=== PATIENT | male | born 1940 | race Caucasian/White ===

== ENCOUNTER 2020-08-24 11:12 | Inpatient (IN) | payer MEDICARE, BC ==
[2020-08-24] MEDS ORDERED: Sodium Chloride 0.9% 10 ML Syringe FLUSH PRN (11:55)
[2020-08-24] MEDS ORDERED: Sodium Chloride 0.9% 1,000 ML IV SCH (12:00)
--- NOTE | 2020-08-24 12:02 | EDM.PDOC ---
ED HPI GENERAL MEDICAL PROBLEM - General Chief Complaint: Abdominal Pain Stated Complaint: FLU STOMACH Time Seen by Provider: 08/24/20 11:15 Source of Information: Reports: Patient, Family History Limitations: Reports: No Limitations - History of Present Illness INITIAL COMMENTS - FREE TEXT/NARRATIVE: 79-year-old male with a history of colon cancer, partial colon resection, and hernia repair has been having nausea vomiting and diarrhea for 4 days. Denies fevers or chills, denies hematemesis or hematochezia. No radiation of pain to his back. Pain seems to be localized in the right lower quadrant. Denies shortness of breath or chest pain. Onset: Gradual Duration: Day(s): (4 days) Location: Reports: Abdomen (Especially right lower quadrant) Quality: Reports: Other (Intermittent cramping) Worsens with: Reports: Other (Seems to worsen with trying to eat) Associated Symptoms: Reports: Loss of Appetite, Nausea/Vomiting. Denies: Chest Pain, Cough (No chest pain no cough), Fever/Chills, Shortness of Breath, Weakness Abdominal Pain Score (Numeric/FACES): 8 - Related Data Allergies Allergy/AdvReac Type Severity Reaction Status Date / Time No Known Allergies Allergy Verified 08/24/20 11:28 Home Meds: Home Meds Cholecalciferol (Vitamin D3) [Vitamin D3] 25 mcg PO DAILY 08/24/20 [History] Omeprazole Magnesium [Prilosec Otc] 20 mg PO DAILY 08/24/20 [History] Tamsulosin HCl [Flomax] 0.4 mg PO DAILY 08/24/20 [History] Past Medical History HEENT History: Reports: None Cardiovascular History: Reports: Arrhythmia, High Cholesterol Respiratory History: Reports: None Gastrointestinal History: Reports: Diverticulosis Genitourinary History: Reports: BPH Musculoskeletal History: Reports: Fracture Neurological History: Reports: None Psychiatric History: Reports: None Endocrine/Metabolic History: Reports: None Hematologic History: Reports: None Immunologic History: Reports: None Oncologic (Cancer) History: Reports: Colon, Prostate Dermatologic History: Reports: None - Infectious Disease History Infectious Disease History: Reports: Chicken Pox, Mumps, Shingles, Other (See Below) Other Infectious Disease History: covid vacc x 16 may 2020 - Past Surgical History HEENT Surgical History: Reports: None GI Surgical History: Reports: Appendectomy, Colon Other GI Surgeries/Procedures: resection Male Surgical History: Reports: Other (See Below) Other Male Surgeries/Procedures: prostrate radiation Musculoskeletal Surgical History: Reports: None Other Oncologic Surgeries/Procedures: chemo for cancer colon ED ROS GENERAL - Review of Systems Review Of Systems: See Below Constitutional: Reports: Malaise. Denies: Fever, Chills HEENT: Reports: No Symptoms Respiratory: Denies: Shortness of Breath Cardiovascular: Denies: Chest Pain GI/Abdominal: Reports: Abdominal Pain, Diarrhea, Nausea, Vomiting. Denies: Hematemesis, Hematochezia, Stool Incontinence Skin: Reports: No Symptoms Neurological: Denies: Headache Psychiatric: Reports: No Symptoms ED EXAM, GI/ABD - Physical Exam Exam: See Below Exam Limited By: No Limitations General Appearance: Alert, No Apparent Distress Eyes: Bilateral: Normal Appearance Head: Atraumatic Respiratory/Chest: No Respiratory Distress, Lungs Clear Cardiovascular: Regular Rate, Rhythm, No Murmur, Extra Beats GI/Abdominal Exam: Normal Bowel Sounds, Soft, Guarding, Tender (Tenderness is most pronounced in the right lower quadrant with some guarding) Extremities: No: Pedal Edema (No edema check) Neurological: Alert, Oriented Psychiatric: Normal Affect, Normal Mood Skin Exam: Warm, Dry Course - Vital Signs Last Recorded V/S: Last Vital Signs Temp 97.2 F 08/24/20 11:25 Pulse 80 08/24/20 15:20 Resp 18 08/24/20 15:20 BP 138/84 08/24/20 15:20 Pulse Ox 97 08/24/20 15:20 - Orders/Labs/Meds Orders: Active Orders 24 hr Category Date Time Status Peripheral IV Care [RC] . DIRECTED Care 08/24/20 11:59 Active OVA + PARASITE EXAM Stat Lab 08/24/20 11:55 Ordered WBC, STOOL [OP] Stat Lab 08/24/20 11:55 Ordered Ondansetron [Zofran] Med 08/24/20 11:55 Active 4 mg IVPUSH Q4H PRN Sodium Chloride 0.9% [Normal Saline] 1,000 ml Med 08/24/20 12:00 Active IV ASDIRECTED Sodium Chloride 0.9% [Saline Flush] Med 08/24/20 11:55 Active 10 ml FLUSH ASDIRECTED PRN Peripheral IV Insertion Adult [OM.PC] Urgent Oth 08/24/20 11:55 Ordered Medication Orders Benzocaine/Menthol (Benzocaine/Cetylpyridinium/Menthol Lozenge) 1 lozenge MUCMEM Q1H PRN PRN Reason: Sore Throat Diphenhydramine HCl (Diphenhydramine 50 Mg/Ml Sdv) 50 mg IVPUSH Q4H PRN PRN Reason: Itching Fentanyl (Fentanyl 100 Mcg/2 Ml Sdv) 25 mcg IVPUSH Q1H PRN PRN Reason: Pain (moderate 4-6) Sodium Chloride (Normal Saline) 1,000 mls @ 999 mls/hr IV ASDIRECTED [place] Last Admin: 08/24/20 12:19 Dose: 999 mls/hr Documented by: PREILOR Sodium Chloride (Normal Saline) 1,000 mls @ 125 mls/hr IV ASDIRECTED [place] Ondansetron HCl (Ondansetron 4 Mg/2 Ml Sdv) 4 mg IVPUSH Q4H PRN PRN Reason: Nausea/Vomiting Last Admin: 08/24/20 12:19 Dose: 4 mg Documented by: PREILOR Promethazine HCl (Promethazine 25 Mg/Ml Sdv) 25 mg IM Q6H PRN PRN Reason: Nausea Sodium Chloride (Sodium Chloride 0.9% 10 Ml Syringe) 10 ml FLUSH ASDIRECTED PRN PRN Reason: Keep Vein Open Last Admin: 08/24/20 12:20 Dose: 10 ml Documented by: PREILOR Labs: Laboratory Tests 08/24/20 08/24/20 08/24/20 Range/Units 12:22 12:22 12:22 WBC 8.0 (4.5-11.0) K/uL RBC 5.14 (4.30-5.90) M/uL Hgb 14.8 (12.0-15.0) g/dL Hct 45.5 (40.0-54.0) % MCV 89 (80-98) fL MCH 29 (27-31) pg MCHC 33 (32-36) % Plt Count 241 (150-400) K/uL Neut % (Auto) 73.8 H (36-66) % Lymph % (Auto) 14.5 L (24-44) % [place] % (Auto) 11.4 H (2-6) % Eos % (Auto) 0.2 L (2-4) % Baso % (Auto) 0.1 (0-1) % Sodium 140 (140-148) mmol/L Potassium 4.2 (3.6-5.2) mmol/L Chloride 103 (100-108) mmol/L Carbon Dioxide 25 (21-32) mmol/L Anion Gap 11.8 (5.0-14.0) mmol/L BUN 19 H (7-18) mg/dL Creatinine 1.1 (0.8-1.3) mg/dL Est Cr Clr Drug Dosing 57.15 mL/min Estimated GFR (MDRD) > 60 (>60) Glucose 141 H (74-106) mg/dL Lactic Acid 1.0 (0.4-2.0) mmol/L Calcium 8.9 (8.5-10.1) mg/dL Total Bilirubin 0.4 (0.2-1.0) mg/dL AST 20 (15-37) U/L ALT 51 (12-78) U/L Alkaline Phosphatase 67 (46-116) U/L Total Protein 7.4 (6.4-8.2) g/dL Albumin 3.8 (3.4-5.0) g/dL Globulin 3.6 H (2.3-3.5) g/dL Albumin/Globulin Ratio 1.1 L (1.2-2.2) Lipase 79 (73-393) U/L Meds: Medications Generic Name Dose Route Start Last Admin Trade Name Freq PRN Reason Stop Dose Admin Benzocaine/Menthol 1 lozenge 08/24/20 15:21 Benzocaine/Cetylpyridinium/Menthol Lozenge MUCMEM Q1H PRN Sore Throat Diphenhydramine HCl 50 mg 08/24/20 15:21 Diphenhydramine 50 Mg/Ml Sdv IVPUSH Q4H PRN Itching Fentanyl 25 mcg 08/24/20 15:21 Fentanyl 100 Mcg/2 Ml Sdv IVPUSH Q1H PRN Pain (moderate 4-6) Sodium Chloride 1,000 mls @ 999 mls/hr 08/24/20 12:00 08/24/20 12:19 Normal Saline IV 999 mls/hr ASDIRECTED [place] Administration Sodium Chloride 1,000 mls @ 125 mls/hr 08/24/20 15:30 Normal Saline IV ASDIRECTED [place] Ondansetron HCl 4 mg 08/24/20 11:55 08/24/20 12:19 Ondansetron 4 Mg/2 Ml Sdv IVPUSH 4 mg Q4H PRN Administration Nausea/Vomiting Promethazine HCl 25 mg 08/24/20 15:21 Promethazine 25 Mg/Ml Sdv IM Q6H PRN Nausea Sodium Chloride 10 ml 08/24/20 11:55 08/24/20 12:20 Sodium Chloride 0.9% 10 Ml Syringe FLUSH 10 ml ASDIRECTED PRN Administration Keep Vein Open Discontinued Medications Generic Name Dose Route Start Last Admin Trade Name Freq PRN Reason Stop Dose Admin Sodium Chloride 80 mls @ 3.5 mls/sec 08/24/20 13:45 08/24/20 13:54 Normal Saline IV 08/24/20 13:46 3.5 mls/sec ASDIRECTED [place] Administration Iopamidol 138 ml 08/24/20 13:43 08/24/20 13:53 Iopamidol 612 Mg/Ml 500 Ml Multipack Bottle IV 08/24/20 13:44 138 ml ONETIME ONE Administration Metoclopramide HCl 5 mg 08/24/20 15:22 08/24/20 15:53 Metoclopramide 10 Mg/2 Ml Sdv IVPUSH 08/24/20 15:23 5 mg ONETIME ONE Administration Sodium Chloride 10 ml 08/24/20 13:43 08/24/20 13:54 Sodium Chloride 0.9% 10 Ml Syringe FLUSH 08/24/20 13:44 10 ml ONETIME ONE Administration - Re-Assessments/Exams Free Text/Narrative Re-Assessment/Exam: 08/24/20 12:11 IV will be started patient will be bolused with 1 L normal saline, CBC CMP lipase and lactic acid were drawn. A hat was placed on the stool to obtain a stool sample if possible. Likely will need a CT abdomen prior to discharge. 08/24/20 16:57 Labs were reassuring but CT did confirm a likely distal small bowel obstruction. His case was discussed with the hospitalist service and surgical services, Dr. Harris agreed to admit the patient for observation and surgical care for a small bowel obstruction. Departure - Departure Time of Disposition: 16:44 Disposition: Admitted As Inpatient 67 Clinical Impression: Abdominal pain Qualifiers: Abdominal location: right lower quadrant Qualified Code(s): R10.31 - Right lower quadrant pain - Discharge Information Sepsis Event Note (ED) - Evaluation Sepsis Screening Result: No Definite Risk - Focused Exam Vital Signs: Vital Signs Temp Pulse Resp BP Pulse Ox 08/24/20 15:20 80 18 138/84 97 08/24/20 11:25 97.2 F 86 16 156/78 H 97 - My Orders Last 24 Hours: My Active Orders 08/24/20 11:55 OVA + PARASITE EXAM Stat WBC, STOOL [OP] Stat Ondansetron [Zofran] 4 mg IVPUSH Q4H PRN Sodium Chloride 0.9% [Saline Flush] 10 ml FLUSH ASDIRECTED PRN Peripheral IV Insertion Adult [OM.PC] Urgent 08/24/20 11:59 Peripheral IV Care [RC] . DIRECTED 08/24/20 12:00 Sodium Chloride 0.9% [Normal Saline] 1,000 ml IV ASDIRECTED - Assessment/Plan Last 24 Hours: My Active Orders 08/24/20 11:55 OVA + PARASITE EXAM Stat WBC, STOOL [OP] Stat Ondansetron [Zofran] 4 mg IVPUSH Q4H PRN Sodium Chloride 0.9% [Saline Flush] 10 ml FLUSH ASDIRECTED PRN Peripheral IV Insertion Adult [OM.PC] Urgent 08/24/20 11:59 Peripheral IV Care [RC] . DIRECTED 08/24/20 12:00 Sodium Chloride 0.9% [Normal Saline] 1,000 ml IV ASDIRECTED
[2020-08-24] MEDS: Ondansetron 4 MG/2 ML SDV IVPUSH PRN (12:19)
[2020-08-24] MEDS ORDERED: Iopamidol 612 MG/ML 500 ML Multipack Bottle IV ONE (13:43)
[2020-08-24] MEDS ORDERED: Sodium Chloride 0.9% 10 ML Syringe FLUSH ONE (13:43)
[2020-08-24] MEDS ORDERED: Sodium Chloride 0.9% 80 ML IV SCH (13:45)
--- NOTE | 2020-08-24 14:18 | CT ---
Abdomen Pelvis w Cont CLINICAL HISTORY: Abdominal pain COMPARISON: None. TECHNIQUE: Transverse scans were obtained from the base of the lungs to the pubic symphysis following oral contrast and IV infusion of contrast.Auto dosage reduction and iterative reconstructiontechniques employed. FINDINGS: There is diffuse small bowel dilatation with multiple fluid-filled bowel loops. The mid to distal ileum is nondistended. Patient has had previous resection of the right colon. There is an anastomosis in the right upper quadrant. There is a 4.4 cm air and fluid collection contiguous to the transverse duodenum which is felt to represent a diverticulum. There is some free fluid in the mesentery. There is moderate diverticulosis without evidence of diverticulitis. The lung bases are clear. There is some fluid retention within the stomach. There is a small hiatal hernia. The liver there is a subcentimeter cyst in the dome of the liver. No biliary mass or ductal dilatation is identified. The gallbladder has a normal appearance. The spleen has a normal size and shape. The pancreas shows no mass or inflammatory change. The adrenal glands have a normal appearance bilaterally . The kidneys contain a few tiny cysts bilaterally.. The ureters have a normal course and caliber. The bladder has normal contour.. The aorta shows diffuse atheromatous plaque without aneurysm. There is no suspicious retroperitoneal adenopathy. IMPRESSION: Previous right colon resection Diffuse small bowel distention suggesting at least partial small bowel obstruction. There is a transition to normal caliber bowel in the right lower quadrant which appear to be somewhere in the proximal ileum. 4 cm transverse duodenal diverticulum Small collections of free peritoneal fluid in the mid abdomen.
[2020-08-24] MEDS ORDERED: Promethazine 25 MG/ML SDV IM PRN (15:21)
[2020-08-24] MEDS ORDERED: fentaNYL 100 MCG/2 ML SDV IVPUSH PRN (15:21)
[2020-08-24] MEDS ORDERED: diphenhydrAMINE 50 MG/ML SDV IVPUSH PRN (15:21)
[2020-08-24] MEDS ORDERED: Benzocaine/Cetylpyridinium/Menthol Lozenge MUCMEM PRN (15:21)
[2020-08-24] MEDS ORDERED: Metoclopramide 10 MG/2 ML SDV IVPUSH ONE (15:22)
[2020-08-24] MEDS: Sodium Chloride 0.9% 1,000 ML IV SCH (17:09)
--- NOTE | 2020-08-24 19:32 | CONS ---
DATE OF SERVICE: 08/24/2020 REFERRING PHYSICIAN: CONSULTING PHYSICIAN: Rosalio Harris MD REASON FOR CONSULTATION: Abdominal pain. HISTORY OF PRESENT ILLNESS: A 79-year-old male who has a history of colorectal cancer who underwent partial resection in [place] along with hernia repair. The patient has been having nausea and vomiting for approximately 4 days. This appears to be stable, but is slowly worsening. His pain is 1 to 2 out of 10 and is intermittent. PAST MEDICAL HISTORY: Colon resection, prostate cancer, prostate radiation. The patient has been COVID vaccinated. History of diverticulosis. SOCIAL HISTORY: He is not a smoker. FAMILY HISTORY: Noncontributory. REVIEW OF SYSTEMS: GENERAL: Appropriate for condition. HEENT: No abnormalities. RESPIRATORY: No current shortness of breath. CARDIOVASCULAR: No chest pain. GASTROINTESTINAL: As above. GENITOURINARY: No abnormalities. NEUROLOGIC: No significant changes. PSYCHIATRIC: No significant changes. The remainder of systems is reviewed and is negative. PHYSICAL EXAMINATION: VITAL SIGNS: Stable. Temperature 97.2, blood pressure 138/84. HEENT: Pupils are equal. NECK: Supple. LUNGS: Clear. ABDOMEN: Distended. Mild guarding. No rebound. EXTREMITIES: Full range of motion. NEUROLOGIC: Oriented x3. PSYCHIATRIC: No gross depression. LABORATORY RESULTS: Show essentially normal CBC, normal basic metabolic panel. IMAGING: CT scan has been reviewed which suggest partial bowel obstruction. ASSESSMENT: Partial bowel obstruction. PLAN: The patient is being admitted overnight. He will be left nil per os, undergo exploratory laparotomy in a.m. We discussed risks, benefits, alternatives, and limitations including, but not limited to infection, bleeding, perforation, abscess formation, requirement for ostomy, and other risks not listed here along with the patient. We also discussed the risks, benefits, alternatives, and limitations of TAP and rectus sheath blocks. Rosalio Harris MD /[id number]
--- NOTE | 2020-08-25 08:48 | CR ---
CHEST: Portable 08/24/2020 at 4:27 PM CLINICAL HISTORY:NG tube placement COMPARISON:None FINDINGS: NG tube is in place. The tip is in the midesophagus. Patient has an [id number]-[id number] catheter. Lungs are clear. Impression: NG tube in midesophagus
--- NOTE | 2020-08-25 08:48 | CR ---
CHEST: Portable 08/24/2020 at 4:32 PM CLINICAL HISTORY:NG tube placement COMPARISON:Earlier same day FINDINGS: The heart size, pulmonary vascularity and hilar structures are normal. No infiltrate effusion or pneumothorax is seen. There is a left subclavian [id number] catheter in place. NG tube is been placed. It is curled in the fundus of the stomach IMPRESSION: No acute cardiopulmonary process. NG tube curled in fundus of stomach
[2020-08-25] MEDS ORDERED: Ondansetron 4 MG/2 ML SDV ONE (09:33)
[2020-08-25] MEDS ORDERED: Neostigmine Methylsulfate 1 MG/ML 5 ML Syringe ONE (09:33)
[2020-08-25] MEDS ORDERED: Dexamethasone 4 MG/ML SDV ONE (09:33)
[2020-08-25] MEDS ORDERED: Glycopyrrolate 0.2 MG/ML 5 ML MDV ONE (09:33)
[2020-08-25] MEDS ORDERED: Succinylcholine 200 MG/10 ML MDV ONE (09:33)
[2020-08-25] MEDS ORDERED: Rocuronium 50 MG/5 ML Vial ONE (09:33)
[2020-08-25] MEDS ORDERED: Propofol 200 MG/20 ML SDV ONE (09:33)
[2020-08-25] MEDS ORDERED: fentaNYL 250 MCG/5 ML SDV ONE (09:34)
[2020-08-25] MEDS: Sodium Chloride 0.9% 1,000 ML IV SCH ×3 (09:48→23:21)
[2020-08-25] MEDS ORDERED: Bupivacaine 0.5%/EPINEPHrine 1:200,000 50 ML MDV ONE (10:31)
[2020-08-25] MEDS ORDERED: metroNIDAZOLE/Normal Saline 500 MG in Premix Bag 1 BAG IV ONE (10:45)
[2020-08-25] MEDS ORDERED: ceFAZolin 2 GM in Premix Bag 1 BAG IV ONE (10:45)
[2020-08-25] MEDS ORDERED: Ropivacaine 46 ML, dexAMETHasone 8 MG, EPINEPHrine 0.4 MG, Sodium Chloride 0.9% 31.6 ML NERVRT SCH ×4 (11:00)
[2020-08-25] MEDS ORDERED: Sugammadex Sodium 200 MG/2 ML VIAL ONE (12:04)
[2020-08-25] MEDS ORDERED: hydrOXYzine HCL 100 MG/2 ML SDV IM PRN (12:37)
[2020-08-25] MEDS ORDERED: Scopolamine 1.5 MG Transdermal Patch TRDERM PRN (12:38)
[2020-08-25] MEDS: SCOPOLAMINE PATCH CHECK TOP SCH (15:02)
--- NOTE | 2020-08-25 15:23 | OR ---
DATE OF PROCEDURE: 08/25/2020 SURGEON: Rosalio Harris MD PROCEDURES: 1. Exploratory laparotomy (26635). 2. Lysis of adhesions (08686). 3. Closure of fistula, small bowel (71227). 4. Drainage of abdominoperitoneal fluid with culture (89833). 5. Removal of metallic foreign body. 6. Repair of umbilical hernia with mesh. COMPLICATIONS: None. SENIOR TAX SPECIALIST: None. ANESTHESIA: General. RISKS: Risks, benefits, alternatives, and limitations including, but not limited to infection, bleeding, injury to abdominal structures, fistula formation, chronic wounds, chronic pain, and other risks not listed here were explained to the patient along with sepsis and cardiovascular risks, and they wished to proceed. PROCEDURE IN DETAIL: The patient was placed in supine position. A midline incision was made around the umbilicus. This was carried down using Geoffrey clamps to elevate and the peritoneum was entered sharply. The patient was noted to have hernia mesh in place. This was moved to the side. The small bowel was ran from the ligament of Treitz in a distal fashion. In the distal ileum, which coincided with the CT scan results, the patient had a small bowel partial obstruction. This was due to 2 materials. The first is that the patient had an adhesion causing a torsion on the small bowel, and the second, the patient had a metallic object consistent with a grill brush wire creating a fistula from the small bowel into the abdominal wall. The lysis of adhesions was removed with electrocautery. The metallic material was removed. The fistula, which was small, the size of a wire was freshened up and then closed with interrupted sutures, 3-0. In addition, the patient had a pelvic fluid collection. This was approximately 200 to 300 mm in size. This was irrigated. This was cultured and then suctioned and removed. The bowel was then ran in a retrograde and antegrade fashion. No other abnormalities were noted. The liver was smooth. The anastomosis between the colon and the small bowel was viable and the material could be moved through this. There was no evidence of bowel ischemia. The fascia was then elevated with Geoffrey and closed with #1 Vicryl sutures blunt x2 and tied in the middle. Subcutaneous tissues were reapproximated with 3-0 Vicryl and skin was closed with neno. The patient tolerated the procedure well. The umbilical hernia was then repaired as the mesh had moved superiorly. The same mesh was used, then reincorporated to close the umbilical hernia. Rosalio Harris MD /[id number]
[2020-08-25] MEDS: Acetaminophen/oxyCODONE 325-10 MG Tab PO PRN (16:40)
[2020-08-25] MEDS: Ondansetron 4 MG/2 ML SDV IVPUSH PRN (23:23)
[2020-08-26] MEDS: Sodium Chloride 0.9% 1,000 ML IV SCH (07:28)
[2020-08-26] MEDS: Acetaminophen/oxyCODONE 325-10 MG Tab PO PRN ×3 (08:56→21:02)
[2020-08-26] MEDS: SCOPOLAMINE PATCH CHECK TOP SCH (08:59)
[2020-08-26] MEDS: Enoxaparin 40 MG/0.4 ML Syringe SUBCUT SCH (09:10)
[2020-08-26] MEDS: Docusate Sodium 100 MG Cap PO SCH ×2 (09:26→21:02)
[2020-08-26] MEDS: Magnesium Hydroxide 400 MG/5 ML Susp 30 ML Cup PO SCH ×2 (09:26→21:02)
[2020-08-26] MEDS ORDERED: Calcium Carbonate 500 MG Tab.Chew PO PRN (21:19)
[2020-08-27] MEDS: Magnesium Hydroxide 400 MG/5 ML Susp 30 ML Cup PO SCH (09:21)
[2020-08-27] MEDS: Docusate Sodium 100 MG Cap PO SCH (09:21)
[2020-08-27] MEDS: Enoxaparin 40 MG/0.4 ML Syringe SUBCUT SCH (09:21)
[2020-08-27] MEDS: SCOPOLAMINE PATCH CHECK TOP SCH (09:22)
--- NOTE | 2020-08-27 12:51 | PN ---
DATE OF SERVICE: 08/27/2020 SUBJECTIVE: The patient is doing very well. He had 1 episode of nausea yesterday, but is having multiple large bowel movements. His pain is 0/10. No current nausea, vomiting, shortness of breath, or chest pain. OBJECTIVE: VITAL SIGNS: Stable. CARDIOVASCULAR: Regular rhythm and rate. RESPIRATORY: Lungs clear to auscultation bilaterally. SKIN: Incision healing well. ASSESSMENT: Status post exploratory laparotomy. PLAN: The patient to be discharged today. Please see discharge summary for further details. Rosalio Harris MD /[id number]
--- NOTE | 2020-08-27 13:00 | PN ---
DATE OF SERVICE: 08/26/2020 SUBJECTIVE: The patient doing well. Pain is well controlled. No nausea, vomiting, shortness of breath, or chest pain. He is tolerating his diet. OBJECTIVE: VITAL SIGNS: Stable. CARDIOVASCULAR: Regular rhythm and rate. RESPIRATORY: Lungs clear to auscultation bilaterally. Dressing intact. ASSESSMENT: Status post exploratory laparotomy. PLAN: Continue his advanced diet. We will work on discharge once he has a bowel movement. No specific concerns at this time. Rosalio Harris MD /[id number]
--- NOTE | 2020-08-28 07:13 | DISCH ---
DISCHARGE DIAGNOSIS: Status post exploratory laparotomy. SUMMARY HOSPITAL COURSE: A 79-year-old male who underwent an exploratory laparotomy for a bowel obstruction. He was found to have a piece of wire bristle from a barbecue grill causing partial bowel obstruction. After the surgery, the patient did very well. He recovered without any problems. He had one episode of nausea over his hospitalization but feels significantly better. The patient is having multiple large formed bowel movements. His pain is 0/10. No fevers, no chills. The patient is requesting to be discharged. FOLLOWUP: With Surgery in 7 to 14 days. ACTIVITY: No lifting greater than 30 pounds for 30 days. DISCHARGE MEDICATIONS: Please see MAR but include a small dose of [place]. /[id number]
== END 2020-08-27 11:44 | disposition home or self-care (01) | DRG 331 ==
LOC: JP.ED 11:12 → JP.2SS 15:21 → OBSVTOIN 08-26 11:30
PROVIDERS: ADMIT Surgery; ATTEND Surgery
PROC: 0DN80ZZ Release Small Intestine, Open Approach (ICD-10-PCS; principal; 2020-08-25)
PROC: 0DQ80ZZ Repair Small Intestine, Open Approach (ICD-10-PCS; 2020-08-25)
PROC: 0DC80ZZ Extirpation of Matter from Small Intestine, Open Approach (ICD-10-PCS; 2020-08-25)
PROC: 0WUF0JZ Supplement Abdominal Wall with Synthetic Substitute, Open Approach (ICD-10-PCS; 2020-08-25)
PROC: 0W9G0ZZ Drainage of Peritoneal Cavity, Open Approach (ICD-10-PCS; 2020-08-25)
DX: K56.600 Partial intestinal obstruction, unspecified as to cause (principal); K56.51 Intestinal adhesions [bands], with partial obstruction; K42.9 Umbilical hernia without obstruction or gangrene; K56.2 Volvulus; E78.00 Pure hypercholesterolemia, unspecified; N40.0 Benign prostatic hyperplasia without lower urinary tract symptoms; K57.90 Diverticulosis of intestine, part unspecified, without perforation or abscess without bleeding; Z85.46 Personal history of malignant neoplasm of prostate; Z79.899 Other long term (current) drug therapy; Z85.038 Personal history of other malignant neoplasm of large intestine; Z90.49 Acquired absence of other specified parts of digestive tract; Z92.21 Personal history of antineoplastic chemotherapy; Z92.3 Personal history of irradiation
CPT/HCPCS: 36415 ×3; 44620; 44799; 49020; 49585; 71045 ×4; 74177 ×2; 80048 ×2; 80053; 83605; 83690; 85025 ×3; 87070; 87075; 87205; 96374; 96375; 99285; A9270 ×9; J0171; J0330; J0690; J1100 ×2; J1642; J1650; J2405 ×3; J2704; J2710; J2765; J2795; J3010 ×2; J3410; J3490 ×4; J7030 ×6; Q9967; 96372; 96376; 99284; G0378